=== PATIENT | female | born 2000 | race Caucasian/White ===

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

== ENCOUNTER 2022-11-14 16:07 | Emergency (ER) | payer MEDICAID ==
[2022-11-14 16:45] LABS: BASO% 0.1 % (0-3); EOS% 0.4 % (0-8); IMMATURE GRANULOCYTES 0.2 % (0.0-5.0); LYMPH% 2.6 % (15-41); MEAN CORPUSCULAR HGB 28.7 pG CALC (26.0-32.0); MEAN CORPUSCULAR HGB CONC 33.3 g/dL CAL (32.0-36.0); NEUT# 12.64 thou/uL (2.00-7.15); NEUT% 92.7 % (42-76); RED BLOOD COUNT 5.29 mill/uL (4.20-5.60); RED CELL DISTRI WIDTH 13.1 % (11.5-15.5)
[2022-11-14 16:47] LABS: HEMATOCRIT 45.7 % (37.0-47.0); HEMOGLOBIN 15.2 g/dl (12.0-16.0); MEAN CELL VOLUME 86.4 fL CALC (80.0-100.0)
[2022-11-14 16:56] LABS: ALKALINE PHOSPHATASE 88 u/l (38-126); BUN 15 mg/dL (7-17); BUN/CREATININE RATIO 22 (12-20 (CALC)); CHLORIDE 110 mmol/l (95-108); CREATININE 0.7 mg/dL (0.5-1.0); GFR FOR AFR.AMER. > 60 ML/MIN (>=60 (CALC)); GFR OTHER RACES > 60 ML/MIN (>=60 (CALC)); LIPASE 58 u/l (23-300); SGOT/AST 28 u/l (14-36)
[2022-11-14 16:57] LABS: ALBUMIN 5.2 g/dL (3.2-5.0); ANION GAP 20 (6-22 (CALC)); BILIRUBIN, TOTAL 1.1 mg/dL (0.02-1.3); CARBON DIOXIDE 18 mmol/l (22-30); SODIUM 144 mmol/l (137-146); TOTAL PROTEIN 8.2 g/dL (6.3-8.2)
[2022-11-14 17:56] LABS: URINE BILIRUBIN - DIPSTICK NEGATIVE (NEGATIVE); URINE BLOOD DIPSTICK LARGE (NEGATIVE); URINE COLOR YELLOW; URINE GLUCOSE - DIPSTICK NEGATIVE (NEGATIVE); URINE KETONE 40 mg/dL (NEGATIVE); URINE LEUK ESTERASE NEGATIVE (NEGATIVE); URINE PH 5.5 (4.5-8.0); URINE PROTEIN - DIPSTICK NEGATIVE (NEG-TRACE); URINE SPECIFIC GRAVITY >=1.030; URINE UROBILINOGEN - DIPSTICK 0.2 E.U./dL (0.2)
[2022-11-14 18:01] LABS: URINE NITRITE - DIPSTICK NEGATIVE (Negative)
[2022-11-14 18:03] LABS: URINE SQUAMOUS EPITHELIAL CELL FEW EPI/hpf (0-FEW)
[2022-11-14] MEDS ORDERED: ONDANSETRON4 MG PO (21:17)
[2022-11-14 21:21] VITALS: BP 123/76
== END 2022-11-14 21:27 | disposition home or self-care (01) ==
LOC: ED 16:07
PROVIDERS: Family Medicine
DX: A08.4 Viral intestinal infection, unspecified (principal); Z20.822 Contact with and (suspected) exposure to COVID-19